=== PATIENT | female | born 1985 | race Caucasian/White ===

== ENCOUNTER 2018-06-14 20:09 | Emergency (ER) | payer OTHER ==
[2018-06-14] MEDS: DOXYCYCLINE 100 MG TAB PO (22:49)
[2018-06-14] MEDS: CEFTRIAXONE 1 GM INJ IM (22:52)
[2018-06-14 23:17] LABS: URINE BLOOD (Dip) POC 2+ (NEGATIVE); URINE GLUCOSE (Dip) POC Negative (NEGATIVE); URINE KETONES (Dip) POC Negative (NEGATIVE); URINE LEUKOCYTE EST (Dip) POC Trace (NEGATIVE); URINE NITRITE (Dip) POC Negative (NEGATIVE); URINE TOTAL PROTEIN POC Negative (NEGATIVE)
== END 2018-06-15 00:01 | disposition home or self-care (01) ==
LOC: FTE 06-15 00:01
DX: T19.2XXA Foreign body in vulva and vagina, initial encounter (principal); X58.XXXA Exposure to other specified factors, initial encounter; Y92.9 Unspecified place or not applicable
CPT/HCPCS: 81003; 96372; 99284-25

== ENCOUNTER 2018-10-10 18:48 | Emergency (ER) | payer OTHER ==
[2018-10-10] MEDS: predniSONE 20 MG TAB PO (19:54)
[2018-10-10] MEDS: ACETAMINOPHEN 325 MG TAB PO (20:15)
== END 2018-10-10 20:21 | disposition home or self-care (01) ==
LOC: FTE 18:48
DX: J06.9 Acute upper respiratory infection, unspecified (principal)
CPT/HCPCS: 99283